=== PATIENT | female | born 1950 | race African-American/Black ===

== ENCOUNTER 2022-04-12 12:47 | Emergency (ER) | payer MEDICARE, OTHER ==
[~2022-04-12] VITALS: Ht 152.4 cm; Wt 48.0 kg
[~2022-04-12 12:47] MED LIST: AMLO2.5T2
[2022-04-12 12:49] VITALS: BP 186/65
== END 2022-04-12 21:17 | disposition left against medical advice (07) ==
LOC: ER 12:47
DX: Z53.21 Procedure and treatment not carried out due to patient leaving prior to being seen by health care provider (principal); I49.9 Cardiac arrhythmia, unspecified
CPT/HCPCS: 93005

== ENCOUNTER 2022-04-13 06:38 | Emergency (ER) | payer MEDICARE, OTHER ==
[~2022-04-13] VITALS: Ht 152.4 cm; Wt 48.0 kg
[2022-04-13 06:41] VITALS: BP 146/52
[2022-04-13 08:20] LABS: CHLORIDE 110 mEq/L (98-107)
[2022-04-13 09:54] LABS: BASOPHILS % 0.9 % (0.0-2.0); EOSINOPHILS % 2.4 % (0.0-5.0); HEMATOCRIT. 40.1 % (36.0-48.0); LYMPHOCYTES % 25.9 % (20.0-50.0); MEAN CORPUSCULAR HEMOGLOBIN 26.1 pg (28.0-32.0); MEAN CORPUSCULAR VOLUME 80.8 fL (81.0-99.0); MEAN PLATELET VOLUME 8.9 fl (7.4-10.4); MONOCYTES % 7.2 % (2.0-8.0); NEUTROPHILS % 63.6 % (40.0-76.0); PLATELET 248 x1000/uL (130-400); RED BLOOD CELL COUNT 4.97 mill/uL (4.2-5.4); RED CELL DISTRIBUTION WIDTH 15.2 % (11.6-14.6)
== END 2022-04-13 12:56 | disposition home or self-care (01) ==
LOC: ER 06:38
DX: R07.89 Other chest pain (principal); E11.9 Type 2 diabetes mellitus without complications; I10 Essential (primary) hypertension; K21.9 Gastro-esophageal reflux disease without esophagitis; Z86.16 Personal history of COVID-19
CPT/HCPCS: 36415; 71045; 71250; 80053; 83880; 85025; 85379; 93005; 99285

== ENCOUNTER 2022-05-09 09:44 | Emergency (ER) | payer MEDICARE, MEDICAID ==
[~2022-05-09] VITALS: Ht 152.4 cm; Wt 48.0 kg
[2022-05-09 09:59] VITALS: BP 147/33
== END 2022-05-09 10:45 | disposition home or self-care (01) ==
LOC: ER 09:44
DX: R07.89 Other chest pain (principal); I10 Essential (primary) hypertension; E11.9 Type 2 diabetes mellitus without complications
CPT/HCPCS: 99281

== ENCOUNTER 2023-04-14 07:50 | Emergency (ER) | payer MEDICARE, MEDICAID ==
[~2023-04-14] VITALS: Ht 157.5 cm; Wt 50.0 kg
[2023-04-14 08:00] VITALS: O2SAT 99
[2023-04-14 08:52] LABS: BASOPHILS % 0.7 % (0.0-2.0); EOSINOPHILS % 0.4 % (0.0-5.0); HEMATOCRIT. 44.2 % (36.0-48.0); HEMOGLOBIN. 14.1 g/dL (12.0-16.0); LYMPHOCYTES % 12.1 % (20.0-50.0); MEAN CORPUSCULAR HEMOGLOBIN 26.3 pg (28.0-32.0); MEAN CORPUSCULAR HGB CONC 31.8 g/dL (31.0-37.0); MEAN CORPUSCULAR VOLUME 82.7 fL (81.0-99.0); MEAN PLATELET VOLUME 8.5 fl (7.4-10.4); MONOCYTES % 3.9 % (2.0-8.0); NEUTROPHILS % 82.9 % (40.0-76.0); PLATELET 280 x1000/uL (130-400); RED BLOOD CELL COUNT 5.35 mill/uL (4.2-5.4); RED CELL DISTRIBUTION WIDTH 14.4 % (11.6-14.6); WHITE BLOOD COUNT 6.2 x1000/uL (4.5-11.0)
[2023-04-14] MEDS ORDERED: ACETAMINOPHEN 325MG TABLET PO ONE (10:15)
[2023-04-14] MEDS ORDERED: MECLIZINE 25MG TABLET PO ONE (10:15)
[2023-04-14] MEDS ORDERED: ONDANSETRON HCL 4MG/2ML INJ IV ONE (10:15)
[2023-04-14 10:38] LABS: ALANINE AMINOTRANSFERASE 25 IU/L (10-49); ALBUMIN 3.2 g/dL (3.2-4.8); ASPARTATE AMINOTRANSFERASE 20 IU/L (<34); BILIRUBIN TOTAL 0.4 mg/dL (0.1-1.0); CALCIUM 8.7 mg/dL (8.7-10.4); CARBON DIOXIDE 25 mEq/L (21-32); CHLORIDE 110 mEq/L (98-107); CREATININE 0.7 mg/dL (0.6-1.0); GLUCOSE 115 mg/dL (70-105); POTASSIUM 3.9 mEq/L (3.5-5.1); PROTEIN TOTAL 5.1 g/dL (6.0-8.3); SODIUM 144 mEq/L (136-145); TROPONIN I HIGH SENSITIVITY 4 ng/L (3.0-34); UREA NITROGEN BLOOD 13 mg/dL (9-23)
[2023-04-14] MEDS ORDERED: MECLIZINE 12.5MG TABLET PO NR (15:00)
[2023-04-14 15:43] VITALS: BP 187/51; PULSE 77; RESP 16; TEMP 98.6
== END 2023-04-14 16:33 | disposition left against medical advice (07) ==
LOC: ER 07:50 → EDBEDREQ 10:13 → EDBEDREQTM 12:52 → EDBEDREQ 12:52 → ER 16:33 → CANBEDREQ 04-16 20:52
DX: R42 Dizziness and giddiness (principal); R51.9 Headache, unspecified; R10.13 Epigastric pain; H53.8 Other visual disturbances; E11.9 Type 2 diabetes mellitus without complications; I10 Essential (primary) hypertension
CPT/HCPCS: 99283; 80053; 82962; 83690; 85025; 84484; 36415; J8597

== ENCOUNTER 2023-11-17 19:36 | Emergency (ER) | payer MEDICARE, MEDICAID ==
[~2023-11-17] VITALS: Ht 152.4 cm; Wt 48.0 kg
[2023-11-17 19:44] VITALS: BP 197/62; PULSE 66; RESP 18; TEMP 98.5; O2SAT 99
[2023-11-17 20:52] LABS: BASOPHILS % 0.6 % (0.0-2.0); DIFFERENTIAL COMMENT 0; EOSINOPHILS % 3.5 % (0.0-5.0); HEMATOCRIT. 40.2 % (36.0-48.0); HEMOGLOBIN. 12.3 g/dL (12.0-16.0); LYMPHOCYTES % 23.5 % (20.0-50.0); MEAN CORPUSCULAR HEMOGLOBIN 25.4 pg (28.0-32.0); MEAN CORPUSCULAR HGB CONC 30.7 g/dL (31.0-37.0); MEAN CORPUSCULAR VOLUME 82.8 fL (81.0-99.0); MEAN PLATELET VOLUME 8.7 fl (7.4-10.4); MONOCYTES % 8.8 % (2.0-8.0); NEUTROPHILS % 63.6 % (40.0-76.0); PLATELET 238 x1000/uL (130-400); RED BLOOD CELL COUNT 4.86 mill/uL (4.2-5.4); RED CELL DISTRIBUTION WIDTH 15.3 % (11.6-14.6); WHITE BLOOD COUNT 5.9 x1000/uL (4.5-11.0)
[2023-11-17 20:54] LABS: POTASSIUM 4.5 mEq/L (3.5-5.1)
[2023-11-17 20:56] LABS: CALCIUM 8.5 mg/dL (8.7-10.4)
[2023-11-17 21:00] LABS: CREATININE 1.2 mg/dL (0.6-1.0)
[2023-11-17] MEDS: ACETAMINOPHEN 325MG TABLET PO ONE (22:45)
== END 2023-11-17 23:15 | disposition home or self-care (01) ==
LOC: ER 19:36
DX: R60.0 Localized edema (principal); I10 Essential (primary) hypertension; Z98.890 Other specified postprocedural states
CPT/HCPCS: 36415; 80048; 83880; 85025; 99283

== ENCOUNTER 2024-05-21 15:10 | Emergency (ER) | payer MEDICARE, MEDICAID ==
[~2024-05-21] VITALS: Ht 157.5 cm; Wt 50.0 kg
[2024-05-21 15:19] VITALS: BP 187/62; PULSE 63; RESP 18; TEMP 37; O2SAT 99
== END 2024-05-21 20:43 | disposition left against medical advice (07) ==
LOC: ER 15:10
DX: R07.9 Chest pain, unspecified (principal); I10 Essential (primary) hypertension; Z98.890 Other specified postprocedural states; Z53.21 Procedure and treatment not carried out due to patient leaving prior to being seen by health care provider
CPT/HCPCS: 71045; 93005

== ENCOUNTER 2024-05-22 08:03 | Emergency (ER) | payer OTHER, MEDICAID ==
[~2024-05-22] VITALS: Ht 152.4 cm; Wt 47.0 kg
[2024-05-22 08:11] VITALS: TEMP 36.7; O2SAT 95
[2024-05-22] MEDS: ASPIRIN 325MG TABLET PO ONE (08:30)
[2024-05-22 08:38] LABS: BASOPHILS % 0.6 % (0.0-2.0); CHLORIDE 111 mEq/L (98-107); EOSINOPHILS % 2.2 % (0.0-5.0); HEMOGLOBIN. 13.3 g/dL (12.0-16.0); LYMPHOCYTES % 24.2 % (20.0-50.0); MEAN CORPUSCULAR HEMOGLOBIN 26.7 pg (28.0-32.0); MEAN CORPUSCULAR HGB CONC 31.7 g/dL (31.0-37.0); MEAN CORPUSCULAR VOLUME 84.1 fL (81.0-99.0); MEAN PLATELET VOLUME 8.6 fl (7.4-10.4); MONOCYTES % 7.3 % (2.0-8.0); NEUTROPHILS % 65.7 % (40.0-76.0); PLATELET 256 x1000/uL (130-400); POTASSIUM 4.8 mEq/L (3.5-5.1); RED CELL DISTRIBUTION WIDTH 15.2 % (11.6-14.6); SODIUM 146 mEq/L (136-145); WHITE BLOOD COUNT 5.5 x1000/uL (4.5-11.0)
[2024-05-22 08:39] LABS: CARBON DIOXIDE 30 mEq/L (21-32)
[2024-05-22 08:40] LABS: CALCIUM 8.5 mg/dL (8.7-10.4)
[2024-05-22 08:44] LABS: CREATININE 0.8 mg/dL (0.6-1.0); GLUCOSE 83 mg/dL (70-105); UREA NITROGEN BLOOD 23 mg/dL (9-23)
[2024-05-22 08:56] LABS: TROPONIN I HIGH SENSITIVITY < 4 ng/L (3.0-34)
[2024-05-22 12:11] VITALS: BP 168/63; PULSE 66; RESP 13; O2SAT 95
== END 2024-05-22 12:23 | disposition left against medical advice (07) ==
LOC: ER 08:03
DX: R07.9 Chest pain, unspecified (principal); E11.9 Type 2 diabetes mellitus without complications; E78.5 Hyperlipidemia, unspecified; I10 Essential (primary) hypertension; Z98.890 Other specified postprocedural states
CPT/HCPCS: 36415; 71045; 80048; 84484; 85025; 93005; 99285

== ENCOUNTER 2024-07-01 08:11 | Emergency (ER) | payer OTHER, MEDICAID ==
[~2024-07-01] VITALS: Ht 152.4 cm; Wt 45.0 kg
[2024-07-01 08:35] VITALS: TEMP 36.9; O2SAT 100
[2024-07-01 10:29] VITALS: BP 130/50; PULSE 80; RESP 17; O2SAT 99
== END 2024-07-01 10:31 | disposition home or self-care (01) ==
LOC: ER 08:11
DX: H93.13 Tinnitus, bilateral (principal); I10 Essential (primary) hypertension; Z79.899 Other long term (current) drug therapy
CPT/HCPCS: 99284; A4606